=== PATIENT | male | born 1935 | race Caucasian/White ===

== ENCOUNTER 2020-05-14 09:54 | Emergency (ER) | payer OTHER, BC, SELFPAY ==
[2020-05-14 09:56] VITALS: BP 169/70; PULSE 91; RESP 44; TEMP 36.7; O2SAT 90; BMI 32.5
--- NOTE | 2020-05-14 10:00 | XR_ITS ---
WS: [id number] Portable AP upright chest, 05/14/2020 Clinical Data: dyspnea Comparison: Left RIBS, 08/15/2008 Findings: There is a consolidation in the left upper lobe which could represent a lung mass. The righ t lower lobe shows minimal opacification which could represent pneumonia and/or atelectasis. There is a small left effusion The right upper lobe and left lower lobe are clear. The heart is normal. The p atient is rotated but there is deviation of the trachea from left to right. No pneumonia or pneumotho rax is present. The pulmonary vascularity is not increased. Monitor leads are on the chest wall. XR/XR chest 1V portable [id number] Impression: 1. Possible left upper lobe mass with small left pleural effusion. 2. Minimal opacification in the right lower lobe which could represent consolid ation from pneumonia or atelectasis.
--- NOTE | 2020-05-14 10:03 | ED_ITS ---
HPI - SOB/Dyspnea General: Chief Complaint: Shortness of Breath/Dyspnea Stated Complaint: Resp Distress Time Seen by Provider: 05/14/20 10:00 History of Present Illness: HPI Narrative: 84-year-old male who was diagnosed with approximately 1 month ago with lung cancer. He was called by EMS with hemoptysis and severe shortness of breath EMS reports he was poorly responsive initially he did respond to CPAP he was given dexamethasone Solu-Medrol albuterol and terbutaline as well as Lasix. He is on CPAP on arrival he does state he wants to be fully revived up to and including intubation. He had been on hospice but evidently they had changed their minds today when he suddenly worsened. Initial reports was a large amounts of hemoptysis however EMS reports he only had small bits of blood and napkin when they arrived there. I do not have any old records available on this patient. At this time he denies chest pain he denies fever sweats or chills denies vomiting or diarrhea. MD elicited complaint: shortness of breath and cough Pertinent past history: COPD and other (Lung CA) Onset (ago): minute(s) Context: other (Lung CA) Timing: constant Severity: severe Exacerbating factors: exertion, movement and coughing Relieving factors: oxygen Known history of: COPD and other (Lung CA) Associated symptoms: Reports chest congestion, cough, diaphoresis, hemoptysis, myalgias, nausea and orthopnea; Deny abdominal pain, chest pain, extremity pain, fever(s), lightheadedness, palpitations, paresthesias, polydipsia, polyuria, rash, sense of impending doom, syncope or vomiting Treatment prior to arrival: oxygen and bronchodilator Review of Systems Const: Reports: diaphoresis; Denies: fever(s) ENMT: Denies: throat pain, ear or mastoid pain, nasal discharge or nasal congestion Card: Reports: orthopnea; Denies: chest pain, palpitations, lightheadedness or syncope Resp: Reports: hemoptysis and chest congestion GI: Reports: nausea; Denies: abdominal pain or vomiting : Denies: flank pain, dysuria, urinary frequency or urinary urgency Musc: Denies: extremity pain Endo: Denies: polyuria or polydipsia PFSH ED PFSH: Medical History Lung cancer Physical Exam Const: GENERAL APPEARANCE: lethargic NUTRITIONAL APPEARANCE: obese ORIENTATION/CONSCIOUSNESS: Yes lethargic HENMT: COMMON NORMALS: normocephalic and atraumatic HEAD & SCALP: normocephalic and atraumatic Neck/C-Spine: COMMON NORMALS: no JVD Resp: EFFORT & INSPECTION: Yes tachypneic, Yes Actively coughing and Yes uses accessory muscles AUSCULTATION: rales, rhonchi, wheezes and diminished lung sounds Cardio: COMMON NORMALS: no JVD, regular rhythm and No murmurs present (Cardio) RATE: tachycardic RHYTHM: regular rhythm GI: COMMON NORMALS: Soft to palpation and No hepatosplenomegaly present AUSCULTATION: Yes normoactive bowel sounds PALPATION: Yes Soft to palpation, No Tenderness to palpation present (GI), No Guarding due to palpation present (GI) and Yes No hepatosplenomegaly present Neuro: SENSORIUM/ORIENTATION: Yes lethargic Procedures Intubation Laryngoscope: fiber optic video scope Assist Device Used: fiber optic device ET Tube Size: 8.5 ET Tube Uncuffed: No Tube Placement Confirmation: visualized tube passing through cords, equal breath sounds bilaterally, no breath sounds over epigastrium and confirmation by capnometry Patient Tolerated Procedure: well Intubation Complications: none Course Vital Signs: Vital signs: Vital Signs Temperature 98.0 F 05/14/20 09:56 Pulse Rate 89 05/14/20 14:12 Respiratory Rate 12 05/14/20 16:20 Blood Pressure 169/70 05/14/20 09:56 Pulse Oximetry 92 05/14/20 14:12 MDM - SOB/Dyspnea MDM Narrative: Medical decision making narrative: Conversation with the . She want to consider resuming treatment for and take him off of hospice but not treat the cancer. Discussed with her that it appears he has a postobstructive pneumonia and that simply treating the pneumonia will not fix this infarct without pursuing treatment for the cancer is unlikely the pneumonia can be resolved. She had a difficult time understanding this we spent nearly 45 minutes discussing this. She is going to discuss it with her family and call us back. While we were waiting to hear back from the family the patient went into res piratory arrest. Since the family had not decided to do anything he was intubated and resuscitated were were able to achieve ROSC. Further discussion with the family and they decided against any further interventions and actually asked that we withdraw life support and to make him a no code. Several family members were present they were all in agreement. The brought to the room patient was extubated family was at the bedside when he . Lab Data: Attestation: I reviewed the patient's lab results. Labs: Lab Results 05/14/20 05/14/20 05/14/20 Range/Units 09:50 09:50 09:50 WBC 13.5 H (4.0-10.0) 10^3/ uL RBC 2.88 L (4.1-5.3) 10^6/u L Hgb 6.7 L (11.7-16.6) g/dL Hct 23.6 L (42.0-52.0) % MCV 81.9 (80-94) fL MCH 23.3 L (28.0-34.0) pg MCHC 28.4 L (30.0-36.0) g/dL RDW 16.9 H (12.1-15.1) % Plt Count 485 H (130-400) 10^3/c mm MPV 10.0 (7.4-10.4) fL Neut % (Auto) 53.8 % Lymph % (Auto) 37.6 % [place] % (Auto) 7.6 % Eos % (Auto) 0.1 % Baso % (Auto) 0.2 % Neut # (Auto) 7.23 (1.8-7.7) 10^3/u L Lymph # (Auto) 5.1 H (0.8-4.8) 10^3/u L [place] # (Auto) 1.0 H (0.2-0.9) 10^3/u L Eos # (Auto) 0.0 (0.0-0.8) 10^3/u L Baso # (Auto) 0.0 (0.0-0.1) 10^3/u L Nucleated RBC % (a uto) 0.1 % Nucleated RBCs # 0.0 /100WBC PT 14.20 (12.1-14.9) SECO NDS INR 1.06 (0.8-1.2) APTT 28.3 (23.9-36.7) SECO NDS Fibrinogen 552 H (174-498) mg/dL D-Dimer 1.01 H (0-0.59) ug/mIFE U Specimen Type Sample Site ABG pH (7.35-7.45) ABG pCO2 (35-45) mmHg ABG pO2 (80.0-100.0) mmH g ABG HCO3 (22-26) mmol/L ABG O2 Saturation ABG Base Excess (-2.0-2.0) mmol/ L Ajay Test A-a O2 Gradient (5-10) mmHg Hematocrit (42-52) % Hgb O2 Saturation (95-100) % Carboxyhemoglobin (0.4-20.1) %THgb Methemoglobin (0.4-1.5) % Total Hemoglobin (14-18) g/dL Ionized Calcium (1.1-1.4) mmol/L O2 Delivery Device FiO2 % Spare Hand Carding ID Crit Value Read Ba ck Sodium 132 L (136-145) mmol/L Potassium 4.7 (3.5-5.1) mmol/L Chloride 90 L (98-107) mmol/L Carbon Dioxide 31 H (22-29) mmol/L Anion Gap 15.7 (5-19) BUN 22 (8-23) mg/dL Creatinine 0.6 L (0.7-1.2) mg/dL GFR Calculation Not Reportable Glucose 291 H (65-115) mg/dL Calculated Osmolal ity 288 (285-295) mOsm/k g Lactic Acid (0.5-2.2) mmol/L Calcium 8.9 (8.5-10.5) mg/dL Magnesium 2.1 (1.7-2.3) mg/dL Ferritin 48 (30-400) ng/mL Total Bilirubin 0.2 (0.15-1.2) mg/dL AST 21 (0-40) U/L ALT 16 (0-41) U/L Alkaline Phosphata se 153 H (40-130) IU/L Lactate Dehydrogen ase 190 (135-225) U/L Creatine Kinase 40 (39-308) U/L C-Reactive Protein 50.2 H (0.0-4.9) mg/L NT-Pro-B Natriuret Pep 2555 H (0-450) pg/mL Total Protein 7.5 (6.6-8.7) g/dL Albumin 3.8 (3.5-5.2) g/dL Globulin 3.7 (1.3-4.6) g/dL Triglycerides (0-150) mg/dL Cholesterol (0-200) mg/dL LDL Cholesterol, C alc (50-129) mg/dL HDL Cholesterol (60-100) mg/dL LDL/HDL Ratio (0.00-3.22) RATI O Cholesterol/HDL Ra sivakumar (1.0-5.00) mg/dL Procalcitonin 0.05 (0-0.5) ng/mL Blood Type Rho(D) Type Antibody Screen Crossmatch 05/14/20 05/14/20 05/14/20 Range/Units 09:50 09:55 10:24 WBC (4.0-10.0) 10^3/ uL RBC (4.1-5.3) 10^6/u L Hgb (11.7-16.6) g/dL Hct (42.0-52.0) % MCV (80-94) fL MCH (28.0-34.0) pg MCHC (30.0-36.0) g/dL RDW (12.1-15.1) % Plt Count (130-400) 10^3/c mm MPV (7.4-10.4) fL Neut % (Auto) % Lymph % (Auto) % [place] % (Auto) % Eos % (Auto) % Baso % (Auto) % Neut # (Auto) (1.8-7.7) 10^3/u L Lymph # (Auto) (0.8-4.8) 10^3/u L [place] # (Auto) (0.2-0.9) 10^3/u L Eos # (Auto) (0.0-0.8) 10^3/u L Baso # (Auto) (0.0-0.1) 10^3/u L Nucleated RBC % (a uto) % Nucleated RBCs # /100WBC PT (12.1-14.9) SECO NDS INR (0.8-1.2) APTT (23.9-36.7) SECO NDS Fibrinogen (174-498) mg/dL D-Dimer (0-0.59) ug/mIFE U Specimen Type Arterial Sample Site Radial, left ABG pH 7.34 L (7.35-7.45) ABG pCO2 63.9 H* (35-45) mmHg ABG pO2 58.0 L (80.0-100.0) mmH g ABG HCO3 34.4 H (22-26) mmol/L ABG O2 Saturation ABG Base Excess 7.8 H (-2.0-2.0) mmol/ L Ajay Test Pos A-a O2 Gradient (5-10) mmHg Hematocrit 20.4 L (42-52) % Hgb O2 Saturation (95-100) % Carboxyhemoglobin (0.4-20.1) %THgb Methemoglobin (0.4-1.5) % Total Hemoglobin (14-18) g/dL Ionized Calcium (1.1-1.4) mmol/L O2 Delivery Device Bipap FiO2 100.0 % Spare Hand Carding ID Cak Crit Value Read Ba ck Sodium (136-145) mmol/L Potassium (3.5-5.1) mmol/L Chloride (98-107) mmol/L Carbon Dioxide (22-29) mmol/L Anion Gap (5-19) BUN (8-23) mg/dL Creatinine (0.7-1.2) mg/dL GFR Calculation Glucose (65-115) mg/dL Calculated Osmolal ity (285-295) mOsm/k g Lactic Acid 2.1 (0.5-2.2) mmol/L Calcium (8.5-10.5) mg/dL Magnesium (1.7-2.3) mg/dL Ferritin (30-400) ng/mL Total Bilirubin (0.15-1.2) mg/dL AST (0-40) U/L ALT (0-41) U/L Alkaline Phosphata se (40-130) IU/L Lactate Dehydrogen ase (135-225) U/L Creatine Kinase (39-308) U/L C-Reactive Protein (0.0-4.9) mg/L NT-Pro-B Natriuret Pep (0-450) pg/mL Total Protein (6.6-8.7) g/dL Albumin (3.5-5.2) g/dL Globulin (1.3-4.6) g/dL Triglycerides 94 (0-150) mg/dL Cholesterol 133 (0-200) mg/dL LDL Cholesterol, C alc 50 (50-129) mg/dL HDL Cholesterol 64 (60-100) mg/dL LDL/HDL Ratio 0.78 (0.00-3.22) RATI O Cholesterol/HDL Ra sivakumar 2.08 (1.0-5.00) mg/dL Procalcitonin (0-0.5) ng/mL Blood Type Rho(D) Type Antibody Screen Crossmatch 05/14/20 05/14/20 05/14/20 Range/Units 11:00 15:16 15:40 WBC (4.0-10.0) 10^3/ uL RBC (4.1-5.3) 10^6/u L Hgb (11.7-16.6) g/dL Hct (42.0-52.0) % MCV (80-94) fL MCH (28.0-34.0) pg MCHC (30.0-36.0) g/dL RDW (12.1-15.1) % Plt Count (130-400) 10^3/c mm MPV (7.4-10.4) fL Neut % (Auto) % Lymph % (Auto) % [place] % (Auto) % Eos % (Auto) % Baso % (Auto) % Neut # (Auto) (1.8-7.7) 10^3/u L Lymph # (Auto) (0.8-4.8) 10^3/u L [place] # (Auto) (0.2-0.9) 10^3/u L Eos # (Auto) (0.0-0.8) 10^3/u L Baso # (Auto) (0.0-0.1) 10^3/u L Nucleated RBC % (a uto) % Nucleated RBCs # /100WBC PT (12.1-14.9) SECO NDS INR (0.8-1.2) APTT (23.9-36.7) SECO NDS Fibrinogen (174-498) mg/dL D-Dimer (0-0.59) ug/mIFE U Specimen Type Arterial Arterial Sample Site Radial, right Radial, left ABG pH 7.38 7.27 L (7.35-7.45) ABG pCO2 61.2 H* 75.2 H* (35-45) mmHg ABG pO2 64.6 L 436.0 H (80.0-100.0) mmH g ABG HCO3 36.2 H 34.4 H (22-26) mmol/L ABG O2 Saturation 92.7 > 100.0 ABG Base Excess 10.1 H 6.7 H (-2.0-2.0) mmol/ L Ajay Test Pos Pos A-a O2 Gradient 19.2 H 23.5 H (5-10) mmHg Hematocrit 19.5 L 20.6 L (42-52) % Hgb O2 Saturation 89.7 L 98.3 (95-100) % Carboxyhemoglobin 2.1 1.8 (0.4-20.1) %THgb Methemoglobin 1.1 0.9 (0.4-1.5) % Total Hemoglobin 6.4 L 6.7 L (14-18) g/dL Ionized Calcium 1.2 1.1 (1.1-1.4) mmol/L O2 Delivery Device Bipap Ambu FiO2 40.0 100.0 % Spare Hand Carding ID Duner Ed Crit Value Read Ba ck duner Sodium 134.0 142.0 (136-145) mmol/L Potassium 4.0 3.3 L (3.5-5.1) mmol/L Chloride (98-107) mmol/L Carbon Dioxide (22-29) mmol/L Anion Gap (5-19) BUN (8-23) mg/dL Creatinine (0.7-1.2) mg/dL GFR Calculation Glucose 257.0 H 331.0 H (65-115) mg/dL Calculated Osmolal ity (285-295) mOsm/k g Lactic Acid (0.5-2.2) mmol/L Calcium (8.5-10.5) mg/dL Magnesium (1.7-2.3) mg/dL Ferritin (30-400) ng/mL Total Bilirubin (0.15-1.2) mg/dL AST (0-40) U/L ALT (0-41) U/L Alkaline Phosphata se (40-130) IU/L Lactate Dehydrogen ase (135-225) U/L Creatine Kinase (39-308) U/L C-Reactive Protein (0.0-4.9) mg/L NT-Pro-B Natriuret Pep (0-450) pg/mL Total Protein (6.6-8.7) g/dL Albumin (3.5-5.2) g/dL Globulin (1.3-4.6) g/dL Triglycerides (0-150) mg/dL Cholesterol (0-200) mg/dL LDL Cholesterol, C alc (50-129) mg/dL HDL Cholesterol (60-100) mg/dL LDL/HDL Ratio (0.00-3.22) RATI O Cholesterol/HDL Ra sivakumar (1.0-5.00) mg/dL Procalcitonin (0-0.5) ng/mL Blood Type A Positive Rho(D) Type Positive Antibody Screen Negative Crossmatch See Detail Critical Care Time Critical Care Time: Critical Care Time: Yes Total Critical Care Time: 60 Attestation: This case had a high probability of a clinically significant, sudden, or life threatening deterioration of this patient's condition which required my full and direct attention, intervention and personal management. Discharge Plan Discharge Patient Disposition: Prescriptions: No Action metformin 500 mg tablet 500 mg PO BID RF: 0 ipratropium-albuterol 0.5 mg-3 mg(2.5 mg base)/3 mL solution for nebulization 2.5 ml INHALATION Q6H PRN (Reason: Shortness Of Breath) RF: 0 albuterol sulfate 2.5 mg /3 mL (0.083 %) solution for nebulization 2.5 mg inhalation Q6H PRN (Reason: Shortness Of Breath) RF: 0 pravastatin 40 mg tablet 40 mg PO DAILY RF: 0 clopidogrel 75 mg tablet 75 mg PO DAILY RF: 0 aspirin 81 mg tablet,delayed release (DR/EC) 81 mg PO DAILY RF: 0 Protonix 40 mg tablet,delayed release (DR/EC) 40 mg PO DAILY RF: 0 lisinopril 5 mg tablet 5 mg PO DAILY RF: 0 Referrals: Kimmy Nixon MD [Primary Care Provider] - Discharge Date/Time: 05/14/20 18:28 Probable Cause of Probable cause of : Cardiac arrest Coding Level of Care Code ED Braille Operator for [facility] Fwd Exam Detailed
[2020-05-14 10:06] LABS: ABG PCO2 63.9 mmHg (35-45); ABG PH Result 7.34 (7.35-7.45); Arterial Blood Gas Hematocrit 20.4 % (42-52); Base Excess ABG 7.8 mmol/L (-2.0-2.0); Blood Gas Allen Test Pos; Blood Gas Operator Identificat CAK; Blood Gas Sample Site Radial, left; Blood Gas Sample Type Arterial; HCO3 ABG 34.4 mmol/L (22-26); Oxygen Device BIPAP
[2020-05-14 10:10] VITALS: PULSE 80; RESP 30; O2SAT 97
[2020-05-14 10:15] LABS: Basophils % 0.2 %; Eosinophils % 0.1 %; Hematocrit 23.6 % (42.0-52.0); Hemoglobin 6.7 g/dL (11.7-16.6); Lymphocytes # 5.1 10^3/uL (0.8-4.8); Lymphocytes % 37.6 %; Mean Corpuscular HGB Conc 28.4 g/dL (30.0-36.0); Mean Corpuscular Hemoglobin 23.3 pg (28.0-34.0); Mean Corpuscular Volume 81.9 fL (80-94); Monocytes % 7.6 %; Neutrophils # 7.23 10^3/uL (1.8-7.7); Neutrophils % 53.8 %; Nucleated Red Blood Cells % 0.1 %; Platelet Count 485 10^3/cmm (130-400); Red Blood Count 2.88 10^6/uL (4.1-5.3); Red Cell Distribution Width 16.9 % (12.1-15.1); White Blood Count 13.5 10^3/uL (4.0-10.0)
[2020-05-14 10:29] LABS: INR 1.06 (0.8-1.2)
[2020-05-14 10:30] LABS: Fibrinogen 552 mg/dL (174-498); Partial Thromboplastin Time 28.3 SECONDS (23.9-36.7)
[2020-05-14 10:40] LABS: D Dimer 1.01 ug/mIFEU (0-0.59)
[2020-05-14 10:45] LABS: NT Pro B Type Natriuretic Pept 2555 pg/mL (0-450); Procalcitonin 0.05 ng/mL (0-0.5)
[2020-05-14 10:49] LABS: Lactic Sepsis W/Reflex 2.1 mmol/L (0.5-2.2)
[2020-05-14 10:57] LABS: Alanine Aminotransferase 16 U/L (0-41); Albumin Level 3.8 g/dL (3.5-5.2); Alkaline Phosphatase 153 IU/L (40-130); Anion Gap 15.7 (5-19); Aspartate Amino Transferase 21 U/L (0-40); Blood Urea Nitrogen 22 mg/dL (8-23); C Reactive Protein 50.2 mg/L (0.0-4.9); Calcium 8.9 mg/dL (8.5-10.5); Carbon Dioxide 31 mmol/L (22-29); Chloride 90 mmol/L (98-107); Creatine Phosphokinase 40 U/L (39-308); Ferritin 48 ng/mL (30-400); Globulin 3.7 g/dL (1.3-4.6); Glucose 291 mg/dL (65-115); Lactate Dehydrogenase 190 U/L (135-225); Magnesium 2.1 mg/dL (1.7-2.3); Osmolality Calculated 288 mOsm/kg (285-295); Potassium 4.7 mmol/L (3.5-5.1); Sodium 132 mmol/L (136-145); Total Bilirubin 0.2 mg/dL (0.15-1.2); Total Protein 7.5 g/dL (6.6-8.7)
[2020-05-14 11:10] LABS: ABG PH Result 7.38 (7.35-7.45); Alveolar-Arterial Oxygen Gradi 19.2 mmHg (5-10); Arterial Blood Gas Hematocrit 19.5 % (42-52); Base Excess ABG 10.1 mmol/L (-2.0-2.0); Blood Gas Allen Test Pos; Blood Gas Sample Site Radial, right; Blood Gas Sample Type Arterial; Carboxyhemoglobin 2.1 %THgb (0.4-20.1); HCO3 ABG 36.2 mmol/L (22-26); HGB O2 Sat 89.7 % (95-100); Ionized Calcium Level - ABG 1.2 mmol/L (1.1-1.4); Methemoglobin 1.1 % (0.4-1.5); Oxygen Saturation ABG 92.7; PO2 ABG 64.6 mmHg (80.0-100.0); Total Hemoglobin 6.4 g/dL (14-18)
[2020-05-14 11:12] LABS: ABG PCO2 61.2 mmHg (35-45)
[2020-05-14 12:17] LABS: Reflex Lactate Order REFLEX LACTIC ORDERD
[2020-05-14 12:21] VITALS: PULSE 81; RESP 30; O2SAT 94
[2020-05-14] MEDS: levofloxacin-dextrose 5 % 750 MG/150 ML PREMIX 100 MG IV (14:08)
[2020-05-14] MEDS: LORazepam 2 mg/mL INJ 1 mL 1 MG IVP (14:09)
[2020-05-14 14:12] VITALS: PULSE 89; RESP 27; O2SAT 92
--- NOTE | 2020-05-14 14:54 | P.HP_ITS ---
Providers/Chief Complaint Primary Care Provider: Kimmy Nixon MD Chief Complaint: Resp Distress History of Present Illness History was gathered by chart review as the patient currently on BiPAP and is not respondig well. Documented phone number was called, but the phone went unanswered. Melissa Garrido is a 84 year old male with past medical history of newly diagnosed Ca lung, about a month ago was admitted with chief complaint of hemoptysis, EMS was called hemoptysis and severe shortness of breath, upon their arrival, they found not to much of hemoptysis.EMS reports he was poorly responsive initially he did responded to CPAP he was given dexamethasone, Solu- Medrol albuterol and terbutaline as well as Lasix.Since arrival in the ER he has been on BiPAP. As per the ER note patient was initially hospice, but now he has changed his mind and wants to be full code. Currently he is doing well on BiPAP. In the ER he has received 1 g of vancomycin x1 dose, levofloxacin 750mg IV x1 dose, Lasix 40 IV 1 time dose. CBC CMP lactic acid pro-Isiah, ABG x-ray chest was done. Rapid COVID PCR is pending. Review of Systems General: Reports: 10 or more systems reviewed and unremarkable except in HPI and below Const: Denies: fever(s), chills, body aches, change in appetite or diaphoresis Card: Denies: palpitations GI: Denies: nausea, vomiting or diarrhea Neuro: Denies: headache(s) Medications/Allergies Allergies Allergy/AdvReac Type Severity Reaction Status Date / Time No Known Allergies Allergy Verified 05/14/20 10:03 PFSH Acute PFSH: Medical History Lung cancer Vitals/I&O/Wt Last Vital Signs Temp 98.0 F 05/14/20 09:56 Pulse 89 05/14/20 14:12 Resp 44 H 05/14/20 09:56 BP 169/70 05/14/20 09:56 Pulse Ox 92 05/14/20 14:12 Weight last 48 hrs Weight 99.79 kg Data : 05/14/20 09:50 05/14/20 09:50 Micro: Microbiology 05/14/20 10:24 Blood Culture - Preliminary Blood SPECIMEN COLLECTED 05/14/20 10:24 Blood Culture - Preliminary Blood SPECIMEN COLLECTED Coding Level of Care Code Acute Second Cook And Baker for Roney Henry
[2020-05-14] MEDS: EPINEPHrine 0.1 mg/mL SYR 10 mL 1 MG IVP ×2 (15:10→15:13)
[2020-05-14] MEDS: sodium bicarbonate 8.4% 1 mEq/mL 50mL Syr 50 MEQ IVP ×2 (15:15)
[2020-05-14 15:27] LABS: ABG PCO2 75.2 mmHg (35-45); ABG PH Result 7.27 (7.35-7.45); Alveolar-Arterial Oxygen Gradi 23.5 mmHg (5-10); Arterial Blood Gas Hematocrit 20.6 % (42-52); Base Excess ABG 6.7 mmol/L (-2.0-2.0); Blood Gas Allen Test Pos; Blood Gas Operator Identificat ED; Blood Gas Sample Site Radial, left; Blood Gas Sample Type Arterial; Carboxyhemoglobin 1.8 %THgb (0.4-20.1); HCO3 ABG 34.4 mmol/L (22-26); HGB O2 Sat 98.3 % (95-100); Ionized Calcium Level - ABG 1.1 mmol/L (1.1-1.4); Methemoglobin 0.9 % (0.4-1.5); Oxygen Device AMBU; Oxygen Saturation ABG > 100.0; Potassium Level - ABG 3.3 mmol/L (3.5-5.0); Total Hemoglobin 6.7 g/dL (14-18)
[2020-05-14 15:34] VITALS: RESP 14
[2020-05-14 15:34] LABS: Chol HDL Ratio 2.08 mg/dL (1.0-5.00); Cholesterol 133 mg/dL (0-200); HDL Cholesterol 64 mg/dL (60-100); LDL Cholesterol Calculated 50 mg/dL (50-129); LDL HDL Ratio 0.78 RATIO (0.00-3.22); Triglycerides 94 mg/dL (0-150)
--- NOTE | 2020-05-14 16:07 | PC.NURSE ---
Pt was terminally extubated at [address] Garcia. RT and family at bedside. Pt left on bus driver/monitor for TOD.
--- NOTE | 2020-05-14 16:07 | PC.NURSE ---
patient went unresponsive and code blue was called cpr was started
--- NOTE | 2020-05-14 16:08 | PC.NURSE ---
At 1507, pt was noted to become bradycardic into the 30s, when going to room to check on pt, RT was at the door and noted pt had taken his Bipap off and was hanging off the bed. Pt went down to 21bpm while gowning and Dr Garcia was called to room. Pt had no pulse, CPR was started immediately. Pt noted to have removed left forearm IV, 1mg epi given via right AC IV. During cpr, this IV was accidentally pulled out. New 18g placed to left shoulder and left tibial IO was obtained. See code sheet for medications and pulse checks. Pulse returned at 1516. At a little before 1600, family decided to terminally extubate, at 1600 pt was extubated with family at bedside. TOD was called at 1627. Bacteriology Professor notified.
[2020-05-14 16:20] VITALS: RESP 12
[2020-05-14] MEDS: morphine 4 mg/mL SDV 1 mL IVP (16:20)
[2020-05-14] MEDS: LORazepam 2 mg/mL INJ 1 mL IVP (16:21)
[2020-05-14 16:42] LABS: Oxygen Device BIPAP
--- NOTE | 2020-05-14 16:55 | PC.SOCIAL ---
called [facility] to report . Call placed at [phone] TOD [phone]. Per Henrietta at [facility] pt may be eligible for tissue donation. They will call family to discuss and let this nurse know. Ref # [id number]
--- NOTE | 2020-05-14 17:08 | PC.SOCIAL ---
Ck called back at 1705 from [facility] to indicate patient is not a candidate for donation. Notified Alla in ED community relations rep.
[2020-05-18 08:41] LABS: Coronavirus Lab Test PTC Negative
== END 2020-05-14 18:28 | disposition expired ==
PROVIDERS: Internal Medicine; Emergency Provider Family Medicine; PCP Family Medicine
DX: R06.02 Shortness of breath (principal); Z79.82 Long term (current) use of aspirin; Z79.02 Long term (current) use of antithrombotics/antiplatelets; Z85.118 Personal history of other malignant neoplasm of bronchus and lung
CPT/HCPCS: 12345; 31500; 36415; 36600; 51702; 71045; 80051; 80053; 80061; 82550; 82728; 82803; 82810; 83605; 83615; 83735; 83880; 83986; 84145; 85025; 85378; 85384; 85610; 85730; 86140; 86850; 86900; 86920; 87040; 87070; 87077; 87186; 87205; 87635; 94002; 94660; 94799; 96365; 96366; 96367; 96368; 96375; 99284; 99291; C1751; J0171; J1956; J2060; J2270; P9016